=== PATIENT | female | born 1985 | race Two or more races ===

== ENCOUNTER 2019-12-18 20:24 | Inpatient (IN) | payer MEDICAID, OTHER ==
[~2019-12-18] VITALS: Ht 165.1 cm; Wt 149.7 kg
--- NOTE | 2019-12-18 20:52 | NUR ---
BLOOD COLLECTED AND SENT TO LAB
--- NOTE | 2019-12-18 20:52 | NUR ---
COVID SWAB COLLECTED AND SENT TO LAB
[2019-12-18 21:00] LABS: BASOPHILS # (AUTO) 0.1 /CMM (0.0-0.2); BASOPHILS % (AUTO) 0.8 % (0.0-2.0); EOSINOPHILS % (AUTO) 2.7 % (0.0-6.0); HEMATOCRIT 43 % (33-45); HEMOGLOBIN 13.7 g/dL (11.5-14.8); LYMPHOCYTES # (AUTO) 2.7 /CMM (0.8-4.8); LYMPHOCYTES % (AUTO) 27.5 % (20.0-44.0); MEAN CORPUSCULAR HGB CONC 32 g/dl (31.0-36.0); MEAN CORPUSCULAR VOLUME 96 fL (82-100); MONOCYTES # (AUTO) 1.2 /CMM (0.1-1.30); NEUTROPHILS # (AUTO) 5.5 /CMM (1.8-8.9); PLATELET COUNT (AUTO) 328 /CMM (150-450); RED BLOOD CELL COUNT(AUTO) 4.43 MIL/uL (4.0-5.2); WHITE BLOOD COUNT (AUTO) 9.6 K/uL (4.3-11.0)
--- NOTE | 2019-12-18 21:15 | NUR ---
BRIANNE 61 FROM HOME FOR C/O H/A & SOB. PER EMS PT WAS DISCHARGED FROM [facility] 2 WKS AGO W/ DX OF COVID 19. AAOX4, VSS. RR EVEN & UNLABORED. DENIES CP, DIZZINESS, N/V AT THIS TIME. PT SEEN & EVAL'D BY DR. JIMENEZ. PLACED ON CUPOLA OPERATOR, ST. WILL CONT TO MONITOR.
[2019-12-18 21:17] LABS: APPEARANCE,URINE Slightly Cloudy (CLEAR); BILIRUBIN,URINE MODERATE (NEGATIVE); BLOOD, URINE Trace-intact Ery/uL (NEGATIVE); KETONES,URINE Trace (NEGATIVE); LEUKOCYTE ESTERASE ,URINE Negative (NEGATIVE); NITRITE, URINE Negative (NEGATIVE); PROTEIN,URINE 30 mg/dl (NEGATIVE); UGLUCOSE Negative (NEGATIVE)
[2019-12-18 21:26] LABS: COLOR,URINE DARK YELLOW (YELLOW)
[2019-12-18 21:29] LABS: WBC,URINE 0-2 /HPF (0-3)
[2019-12-18 21:30] LABS: BACTERIA,URINE Few /HPF (None Seen); SQUAMOUS EPITHELIAL CELL,UR Few /HPF (None Seen)
[2019-12-18 21:33] LABS: D-DIMER 1.39 mg/L(FEU (0.17-0.50)
[2019-12-18 21:35] LABS: ALANINE AMINOTRANSFERASE 106 U/L (12-78); ALBUMIN 3.3 g/dL (3.4-5.0); ALKALINE PHOSPHATASE 134 U/L (46-116); ASPARTATE AMINOTRANSFERASE 38 U/L (15-37); B-TYPE NATRIURETIC PEPTIDE 517 PG/ML (0-125); BILIRUBIN,TOTAL 0.3 mg/dL (0.2-1.0); CALCIUM, SERUM 9.3 mg/dL (8.5-10.1); CARBON DIOXIDE 34 mmol/L (21-32); CHLORIDE 99 mmol/L (98-107); CREATININE 0.5 mg/dL (0.6-1.3); GLUCOSE 126 mg/dL (74-106); POTASSIUM 3.2 mmol/L (3.5-5.1); SODIUM SERUM 139 mmol/L (136-145); TOTAL PROTEIN, SERUM 7.6 g/dL (6.4-8.2); UREA NITROGEN, BLOOD 7 mg/dL (7-18)
[2019-12-18 21:48] LABS: CREATINE KINASE, TOTAL 16 U/L (26-192); FERRITIN 365 ng/mL (8-388)
[2019-12-18 21:54] LABS: C-REACTIVE PROTEIN 6.5 mg/dL (0.0-0.9)
--- NOTE | 2019-12-18 22:06 | NUR ---
REPORT GIVEN TO JONG DUGGAN FOR NAS.
[2019-12-18 22:15] VITALS: BP 141/80
--- NOTE | 2019-12-18 22:51 | NUR ---
PLS CALL REESE APONTE (SISTER) @ [phone] FOR ANY UPDATES. FAMILY WANTS TO KNOW PT'S CONDITION.
--- NOTE | 2019-12-18 23:00 | NUR ---
TELE OVF CALLED SISTER BUT NO ONE NURSE THE PHONE. LEFT A MESSAGE FOR HER TO CALL US BACK FOR ANY UPDATE INFO.
--- NOTE | 2019-12-18 23:15 | NUR ---
TELE OVF ADMITTED 34 YEARS OLD PT FROM ER WITH THE DX OF SOB AND COVID 19 BY ELAINE VICKERS PT IS A/O X 3, ESTONIAN SPEAKING. NO SOB NO DISTRESS OR DISCOMFORT NOTED. PT IS WITH TRACH WHICH IS CAPPED. SKIN ASSESSMENT DONE. PICTURES TAKEN AND PLACE THEM IN THE CHART. PT WITH DECUB ON THE RT BUTTOCK. INCONTINENCE CARE GIVNE. WOUND CLEANED AND DRESSING APPLIED. ALSO F/C INSERTED. NOTED YELLOWISH URINE WITH SEDIMENTS. KEPT HER DRY AND CLEAN. SIDE RAILS UP X 2. CALL LIGHT WITHIN REACH. Addendum: 12/19/19 at 0021 by PHAM GRIFFITH RN PT ON 3L VIA N/C O2 SAT 98%
[2019-12-18] MEDS ORDERED: IV NS 0.9% 1,000 ML IV PRN (23:38)
[2019-12-19] MEDS ORDERED: ONDANSETRON HCL/PF 4 MG/2 ML VIAL IVP PRN
[2019-12-19] MEDS ORDERED: MAGNESIUM HYDROXIDE 30 ML UDC PO PRN
[2019-12-19] MEDS ORDERED: ZOLPIDEM TARTRATE 5 MG TABLET PO PRN
[2019-12-19] MEDS ORDERED: ACETAMINOPHEN 325 MG TABLET PO PRN
[2019-12-19] MEDS ORDERED: MAG HYDROX/AL HYDROX/SIMETH 30 ML UDC PO PRN
[2019-12-19] MEDS ORDERED: Z GUARD REMEDY 2 OZ OINT TP PRN
--- NOTE | 2019-12-19 00:20 | NUR ---
TELE OVF RT CHANGED THE NC TO TRACH MASK 3L O2 SAT 98%. continue to monitor her.
[2019-12-19 04:57] LABS: BASOPHILS # (AUTO) 0.1 /CMM (0.0-0.2); BASOPHILS % (AUTO) 0.6 % (0.0-2.0); HEMATOCRIT 43 % (33-45); HEMOGLOBIN 13.6 g/dL (11.5-14.8); LYMPHOCYTES % (AUTO) 21.3 % (20.0-44.0); MEAN CORPUSCULAR HGB CONC 32 g/dl (31.0-36.0); MEAN CORPUSCULAR VOLUME 98 fL (82-100); MONOCYTES # (AUTO) 0.9 /CMM (0.1-1.30); MONOCYTES % (AUTO) 9.6 % (2.0-12.0); NEUTROPHILS # (AUTO) 6.3 /CMM (1.8-8.9); NEUTROPHILS % (AUTO) 65.5 % (43.0-81.0); PLATELET COUNT (AUTO) 287 /CMM (150-450); RED BLOOD CELL COUNT(AUTO) 4.38 MIL/uL (4.0-5.2); WHITE BLOOD COUNT (AUTO) 9.6 K/uL (4.3-11.0)
--- NOTE | 2019-12-19 05:00 | NUR ---
Received patient ,stable,awake,alert,with tracheostomy with simple mask 3 L O2.Stable,not in any distress
[2019-12-19 05:04] LABS: ALBUMIN 2.9 g/dL (3.4-5.0); BILIRUBIN,TOTAL 0.2 mg/dL (0.2-1.0); CALCIUM, SERUM 8.7 mg/dL (8.5-10.1); CREATININE 0.5 mg/dL (0.6-1.3); MAGNESIUM 1.9 mg/dL (1.8-2.4); PHOSPHORUS 4.5 mg/dL (2.5-4.9); POTASSIUM 3.3 mmol/L (3.5-5.1); TOTAL PROTEIN, SERUM 6.9 g/dL (6.4-8.2)
--- NOTE | 2019-12-19 07:00 | NUR ---
Remains stable.Report given to Nicholas SUNSHINE
--- NOTE | 2019-12-19 07:15 | NUR ---
RN OPENING NOTE Received patient asleep in bed no signs of distress appears calm and relaxed. On trach mask 3L tolerating well. AO x3-4 Persian Speaking. computer aided design technician able to translate. Tele reading ST 110s. Has FC draining clear yellow urine by gravity. Noted with rash on L Hip. Pt has RAC #13 reinforced dressing and LFA #20 flushes well. Safety measures reinforced. Call light within reach. Bed locked and on lowest position. Will cont to monitor.
[2019-12-19 08:00] VITALS: BP 114/60
[2019-12-19] MEDS: PANTOPRAZOLE 40 MG TABLET.DR PO SCH (08:50)
[2019-12-19] MEDS: ENOXAPARIN SODIUM 40 MG/0.4 ML DISP.SYRIN SQ SCH (08:53)
--- NOTE | 2019-12-19 09:12 | NUR ---
WOUND CARE CONSULT: REVIEWED CHART, NURSING DOCUMENTATION AND PHOTOS WHICH INDICATE LARGE WOUND TO RT BUTTOCK, RASHES AND REDNESS TO LEFT SIDE OF NECK WITH TRACH, PRESENT ON ADMISSION. RECOMMEND SURGICAL CONSULT. DR MARIE NOTIFIED OF CONSULT REQUEST. RECOMMENDATIONS MADE FOR SKIN PROTECTION. DISCUSSED WITH NURSING STAFF. SOCIAL SERVICE CONSULT REQUESTED. MD IN AGREEMENT WITH PLAN OF CARE. Addendum: 12/19/19 at 0916 by CASSIE SCHULTE [facility] AIR BED IS ON ORDER.
[2019-12-19] MEDS ORDERED: SHAR1SUP RC (10:08)
[2019-12-19] MEDS ORDERED: ALLERGY MED (10:08)
[2019-12-19] MEDS ORDERED: POTASSIUM CHLORIDE 20 MEQ TAB.PRT.SR PO ONE (10:30)
--- NOTE | 2019-12-19 10:30 | NUR ---
CALL RECEIVED BY NEPHEW SHARA MARKHAM ([phone]) REG PATIENT'S CONDITION. ACCDG TO HIM THEY NEED HELP TAKING CARE OF PATIENT BEC AT HOME NO ONE CAN GIVE TX FOR HIS AUNT'S PRESSURE ULCER. INF WILL REFER TO CASE MANAGEMENT. GAVE ALSO PHONE # OF SISTER OF PATIENT REESE APONTE LATVIAN SPEAKER [phone].
[2019-12-19 12:00] VITALS: BP 115/94
--- NOTE | 2019-12-19 13:55 | NUR ---
DR GREEN REQUESTED CXR AND DISCHARGE SUMMARY FROM [facility]. CALLED [employer]. GOT THE FAX NUMBER AND SENT REQUEST BY FAX.
[2019-12-19 14:09] LABS: CALCIUM, SERUM 8.6 mg/dL (8.5-10.1); CREATININE 0.5 mg/dL (0.6-1.3); POTASSIUM 3.8 mmol/L (3.5-5.1)
[2019-12-19] MEDS: DAKINS QUARTER STRENGTH (0.125%) 480 ML BOTTLE TOP SCH (14:10)
[2019-12-19] MEDS: CLOTRIMAZOLE/BETAMETASONE DIPROPIONATE 15 GM TUBE TP SCH ×2 (14:10→16:47)
[2019-12-19] MEDS: FUROSEMIDE 40 MG/4 ML VIAL IV SCH ×2 (14:11→20:03)
--- NOTE | 2019-12-19 15:00 | NUR ---
RT Pt on 3 lpm O2 via trach mask. Pt has Shiley 8 XLT trach tube. Spare trach and ambu bag at bedside. Pt alert and verbal. No respiratory distress or SOB noted at this time. Trach patent and secured. Addendum: 12/19/19 at 1507 by IBRAHIMA WILEY RT Amended: Links added.
[2019-12-19 16:00] VITALS: BP 143/86
--- NOTE | 2019-12-19 18:56 | NUR ---
RN CLOSING NOTE Patient in bed asleep calm and relaxed no signs of distress. tmask 3L tolerating well. aguilar cath drained 800 ml. Endorsed to police shift commander nurse for ethan.
[2019-12-19 20:00] VITALS: BP 118/71
--- NOTE | 2019-12-19 20:00 | NUR ---
SHOE PARTS CASER OPENING NOTE RECEIVED PT AWAKE AND ALERT WITH NO APPARENT SIGNS OF DISTRESS. SHE IS LAYING WITH HOB ELEVATED. SHE IS ON 2L NASAL CANNULA WITH ON 02 SATURATION OF 100%. TELE MONITOR READS SINUS BRADYCARDIA AT 58 BPM. SHE HAS A KLEVER PICC LINE THAT IS FLUSHED AND PATIENT INFUSING NS AT 75ML/HR. SHE HAS HD CATHETER RU CHEST AND A PEG TUBE PATENT AND CLAMPED WITH NO RESIDUAL NOTED. AWAITING H&H RESULTS. SHE IS ON DROPLET ISOLATION FOR R/O COVID. BED IS IN LOWEST AND LOCKED POSITION WITH BED ALARM ACTIVATED. Addendum: 12/19/19 at 2109 by CASSIE JUNOIR RN NOTES NOT FOR THIS PT.
--- NOTE | 2019-12-19 20:00 | NUR ---
RT NOTE PT RECEIVED TRACHED ON T-MASK @ 3LPM. PT AWAKE/ALERT. DIMINISHED B/S NOTED. PT REFUSED SX, NO DISTRESS NOTED. WILL CONTINUE TO MONITOR. Addendum: 12/20/19 at 0402 by FARHAD PULIDO RT Amended: Links added.
--- NOTE | 2019-12-19 20:00 | NUR ---
SPLICER APPRENTICE OPENING NOTES RECEIVED PT AWAKE AND ALERT WITH NO SIGNS OF DISTRESS. SHE HAS A TRACH WITH SUPPLEMENTAL OXYGEN AT 3LP VIA TRACH MASK AND AN 02 SATURATION OF 97%. HER TELE BOX IS READING SINUS TACHYCARDIA 102 BMP. SHE HAS AN 18G RAC THAT IS FLUSHED AT PATIENT. SHE IS ON DROPLET ISOLATION FOR R/O COVID. BED IS IN LOWEST AND LOCKED POSITION WITH CALL LIGHT WITHIN REACH. WILL CONTINUE TO MONITOR.
[2019-12-19 20:26] LABS: ABG OXYGEN SATURATION 98.4 % (92.0-98.5); ABG PCO2 65.3 mmHg (35.0-45.0); ABG PH 7.347 (7.350-7.450); ABG PO2 127.4 mmHg (75.0-100.0); AaDO2 24.4 mmHg; COHb 0.4 % (0.5-1.5); MetHb 0.3 % (0.0-1.5); O2Hb 97.7 % (94.0-97.0); SITE, ABG Left Radial; VENT MODE, BG TRACH COLLAR 32%
[2019-12-20] VITALS (7 sets, daily range): BP systolic 102–140; BP diastolic 67–86
--- NOTE | 2019-12-20 | NUR ---
RT NOTE PLACED PT ON 28% POST ABG RESULTS. RN EDELMIRA AWARE AND NOTIFIED. NO DISTRESS NOTED.
[2019-12-20] MEDS: FUROSEMIDE 40 MG/4 ML VIAL IV SCH (01:44)
[2019-12-20 05:32] LABS: ABG BASE EXCESS 10.7 mmol/L; ABG OXYGEN SATURATION 98.5 % (92.0-98.5); ABG PCO2 62.6 mmHg (35.0-45.0); ABG PH 7.403 (7.350-7.450); ABG PO2 110.9 mmHg (75.0-100.0); AaDO2 14.9 mmHg; COHb 0.8 % (0.5-1.5); MetHb 0.2 % (0.0-1.5); O2Hb 97.5 % (94.0-97.0); SITE, ABG Right Radial; VENT MODE, BG TRACH COLLAR 28%
--- NOTE | 2019-12-20 06:13 | NUR ---
RT NOTE ABG DRAWN @ 0522 ON TRACH COLLAR 28%. NO DISTRESS NOTED. PT AWAKE/ALERT. RN EDELMIRA NOTIFIED OF ABG RESULTS.
--- NOTE | 2019-12-20 06:52 | NUR ---
PIPED BUTTONHOLE MACHINE OPERATOR CLOSING NOTE PT IS RESTING COMFORTABLY IN BED WITH NO S/S OF RESPIRATORY DISTRESS. SHE IS ON TRACH MASK ON 2LPM WITH AN 02 SAT OF 99%. HER TELE MONITOR IS CURRENTLY NSR AT 95 BPM. IVS ARE FLUSHED AND INTACT WITH NO SIGNS OF INFILTRATION OR INFECTION. WOUND CARE WAS WAS COMPLETED AND WELL TOLERATED. BED IS IN LOWEST AND LOCKED POSITION WITH CALL [place] IN REACH. WILL ENDORSE PLAN OF CARE TO AM RN.
[2019-12-20 07:03] LABS: CALCIUM, SERUM 8.7 mg/dL (8.5-10.1); CREATININE 0.5 mg/dL (0.6-1.3); POTASSIUM 3.3 mmol/L (3.5-5.1)
--- NOTE | 2019-12-20 07:15 | NUR ---
RN OPENING NOTE: Received patient in bed and asleep. Isolation precaution to r/o covid-[address] Tele monitor showing sinus rhythm in the 90s. On cont. o2 via Trach mask @ 2lpm being tolerated well. No SOB and not in respiratory distress. Saturation noted at 96%. IV sites clean, dry, patent and intact. Mccracken catheter in place and draining joey colored urine. Noted to have multiple skin issues. No pain noted on patient, appears relaxed and comfortable. Call light in reach. Bed locked, low and at semi-ramos's position, Side rails up x3. Safety ensured and observed. Will continue to monitor.
[2019-12-20] MEDS: PANTOPRAZOLE 40 MG TABLET.DR PO SCH (07:59)
[2019-12-20] MEDS: ENOXAPARIN SODIUM 40 MG/0.4 ML DISP.SYRIN SQ SCH (08:45)
[2019-12-20] MEDS ORDERED: POTASSIUM CHLORIDE 20 MEQ TAB.PRT.SR PO ONE (09:30)
[2019-12-20] MEDS: HYDROCODONE/APAP 5/325MG TABLET PO PRN (11:31)
[2019-12-20] MEDS: DAKINS QUARTER STRENGTH (0.125%) 480 ML BOTTLE TOP SCH (12:04)
[2019-12-20] MEDS: CLOTRIMAZOLE/BETAMETASONE DIPROPIONATE 15 GM TUBE TP SCH ×2 (12:05→19:23)
[2019-12-20] MEDS ORDERED: LIDOCAINE 1%-EPI 1:100,000 20 ML VIAL TP ONE (15:00)
[2019-12-20] MEDS ORDERED: SILVER NITRATE APPLICATOR 1 EA BOX TP ONE (15:00)
--- NOTE | 2019-12-20 15:26 | NUR ---
rn quality note: Patient transferred to room 329 and endorsement given to JONG Monge. PAtient was transferred in stable condition.
--- NOTE | 2019-12-20 15:30 | NUR ---
TELE TRANSFER FROM ICU NOTES RECEIVED PT TRANSFER FROM ICU. PT IS DOMINICAN SPEAKING,ALERT AND ORIENTED X4. ABLE TO MAKE NEEDS KNOWN. ON T PIECE O2 SAT 99%.WITH SHILEY # 8. ON TELE SR ST HR 102. WITH DUGAN CATHETER DRAING CLEAR YELLOW URINE OUTPUT. BEDBOUND WITH HEPLOCKS ON RT AC AND LFA.FOR SERIAL WOUND DEBRIDEMENT OF THE RT BUTTOCK.CONSENT HAS BEEN SIGNED. LIDOCAINE AND SILVER NITRATE PLACED IN THE CASSETTE. ON BARIATRIC BED. TURNED EVERY TWO HRS. CALL LIGHT PLACED WITHIN REACH.
--- NOTE | 2019-12-20 15:33 | NUR ---
2:30pm Card Hand consult requested per Dr. Sarah Beth MD due to the patient coming from home with a large wound on right buttock. Per MD notes, this patient is a 34 year-old female who primarily speaks Kiswahili. This SW spoke to manufacturing assembler Soon inquiring about the patients ability to speak with the trach. manufacturing assembler Soon informed this SW that the patient was going to be transferred to room 329. This SW to follow-up when the patient is in the new room.
--- NOTE | 2019-12-20 20:00 | NUR ---
BLACK ASH BURNER OPERATOR OPENING NOTES RECEIVED PT A/O X4 WITH IN NO APPARENT SIGNS OF DISTRESS. SHE HAS A TRACH COLLAR OXYGEN MASK AT 2 LPM. WITH A SATURATION OF 96%. SHE IS ON TELE MONITOR WITH A HR OF 89 BPM. SHE HAS AN 18G RAC THAT IS FLUSHED AND INTACT WITH NO S/S ON INFILTRATION. HER DUGAN CATHETER IS DRAINING AND A DARK LINH COLOR W SEDIMENT IS NOTED AND COMPLAINING OF BURNING WHEN SHE URINATES. BED IS IN LOWEST AND LOCKED POSITION WITH ALTERNATING TILT ACTIVATED AND CALL LIGHT IN REACH. WILL CONTINUE TO MONITOR.
--- NOTE | 2019-12-20 20:51 | NUR ---
RT NOTE PT RECEIVED TRACHED ON T-MASK @ 2LPM. PT AWAKE/ALERT. SX DONE, SMALL THICK WHITE YELLOW SECRETIONS NOTED. CONT. PULSE OX CONNECTED. NO DISTRESS NOTED. WILL MONITOR T/O SHIFT. Addendum: 12/20/19 at 2051 by FARHAD PULIDO RT Amended: Links added.
[2019-12-20 22:45] LABS: APPEARANCE,URINE TURBID (CLEAR); BILIRUBIN,URINE MODERATE (NEGATIVE); BLOOD, URINE LARGE Ery/uL (NEGATIVE); COLOR,URINE YELLOW (YELLOW); KETONES,URINE TRACE (NEGATIVE); LEUKOCYTE ESTERASE ,URINE SMALL (NEGATIVE); NITRITE, URINE NEGATIVE (NEGATIVE); PROTEIN,URINE 100 mg/dl (NEGATIVE); UGLUCOSE 100 MG/DL mg/dL (NEGATIVE); UROBILINOGEN,URINE >=8.0 EU/dL (0.2)
[2019-12-20 22:49] LABS: BACTERIA,URINE Few /HPF (None Seen); RBC,URINE 51-80 /HPF (0-2); SQUAMOUS EPITHELIAL CELL,UR Few /HPF (None Seen); URINE AMORPHOUS PHOSPHATES Moderate /HPF (None Seen)
[2019-12-21] VITALS (8 sets, daily range): BP systolic 111–138; BP diastolic 67–86
--- NOTE | 2019-12-21 06:00 | NUR ---
BOTTLE INSPECTOR NOTES PT HAD COMPLAINED OF NEW ONSET BURNING WHILE URINATING. AFTER CONTACTING PHILOSOPHY INSTRUCTOR . OBTAINED AN ORDER FOR UA AND UC. UA SHOWED ELEVATED WBC AND OBTAINED ORDER FOR KEFLEX. WILL CONTINUE TO MONITOR
[2019-12-21] MEDS: CEPHALEXIN MONOHYDRATE 500 MG CAPSULE PO SCH ×4 (06:18→23:03)
--- NOTE | 2019-12-21 06:59 | NUR ---
RN CLOSING NOTE PT IS AWAKE AND RESTING IN BED. HER O2 SAT HAS BEEN TITRATED DOWN TO 1LPM VIA TRACH MASK AND SHE IS TOLERATING IT WELL WITH A 02 SAT CURRENTLY AT 98% TRACH MASK. SHE IS CURRENTLY NSR AT 98 BPM. WOUND CARE WAS TOLERATED WELL. BED IS IN LOWEST AND LOCKED POSITION WITH CALL [place] WITHIN REACH. PT IS NOW COMPLAINING OF VAGINAL ITCHINESS WILL ENDORSE TO ONCOMING RN FOR NAS.
--- NOTE | 2019-12-21 07:20 | NUR ---
DINING SERVICE SUPERVISOR NOTES PATIENT IN BED ALERT ORIENTED X 4. NO ACUTE DISTRESS NOTED. BREATHING UNLABORED. NO SOB NOTED. IV ACCESS PATENT AND INTACT, NO REDNESS. NO BLEEDING NOTED. SAFETY MEASURES IN PLACE, CALL LIGHT WITHIN REACH. WILL CONTINUE TO MONITOR ACCORDINGLY.
[2019-12-21] MEDS: PANTOPRAZOLE 40 MG TABLET.DR PO SCH (08:03)
[2019-12-21] MEDS: ENOXAPARIN SODIUM 40 MG/0.4 ML DISP.SYRIN SQ SCH (09:27)
[2019-12-21] MEDS: DAKINS QUARTER STRENGTH (0.125%) 480 ML BOTTLE TOP SCH ×2 (09:28→22:58)
[2019-12-21] MEDS: CLOTRIMAZOLE/BETAMETASONE DIPROPIONATE 15 GM TUBE TP SCH ×2 (09:29→17:34)
--- NOTE | 2019-12-21 12:34 | NUR ---
10:00am It Investment/Portfolio Manager consult requested by Dr. Burleson as the patient came from home with a large wound on the right buttock. It Investment/Portfolio Manager met with the patient at bedside. Patient was alert and oriented x4. Patients primarily language is Korean, and this SW conducted this assessment in Korean. Patient is a 34-year-old female. Patient confirmed demographics on face sheet including date of and address. Patient reported that she cannot walk, per patient she was in a coma at a different hospital from October 05 to November 20 before being admitted to [facility] on 12/18/2019, and that is when she lost sensation in her legs. Patient reports needing a lot of assistance with ADLs and IADLs. Patient reports limited mobility on the lower extremity of her body. Patient reported that her sister Mariposa was taking care of her until her sister fell ill. Patient reports that she has not worked as she was laid off due to COVID-19. Patient reported that she applied for unemployment, was receiving it, and unemployment stopped when the patient was admitted to the previous hospital. Patient reports that she is not receiving any government aid such as food stamps, GR, SSI/SSD. Patient became emotional as patients tone of voice fell low and patient began to cry. Patient stated that she has a 10-year-old son at home who she cannot provide for. Patient stated that her [id number] is helping her and her son financially, and that at the moment he is the only family member who can help. Patient denies alcohol, drug, and cigarette use. Patient denies auditory and visual hallucinations. Patient denies suicidal and homicidal ideations. Patient expressed to this SW that she would like to receive physical therapy services either at [facility] or be referred to an outpatient clinic to gain control of her leg muscles. Patient informed this SW that she believes the reason she has a wound was due to the not being rotated at a previous hospital due to her weight and limited rotation in her home after sister Mariposa fell ill. Patient expressed interest in being discharged to a facility that can provide additional help with her wound. Patient expressed interest in applying for disability and this SW to provide resources to the patient in Korean. Patient informed this SW that she cannot read well and gave verbal consent to provide same information to her sister Mariposa por favor llame a mi rsoalee y chandra kimble elisabeth applicar por mi (please call my sister and tell her how to apply for me). Patient informed this SW that sister Mariposa can apply on her behalf as Mariposa currently has all of the patients personal documentations in her possession. This SW to provide the patient with disability information in Korean first and explain the process to the patient, and will then follow-up with patients sister Mariposa. This SW to follow-up with case management to inform them of patients desire to be discharged to a facility to help with her the wound. This SW remains available for all needs regarding this patient.
--- NOTE | 2019-12-21 12:35 | NUR ---
10:30am This SW returned to see the patient and provided the patient with social security disability information in [place] Islander. Patient thanked this SW for coming to explain and the process of applying for disability. Patient asked this SW to provide the same information to her sister Mariposa . SW to follow-up with Mariposa
--- NOTE | 2019-12-21 15:30 | NUR ---
10:30am This SW contacted patients sister Mariposa . SW introduced herself and informed Mariposa that the patient would like this SW to provide Mariposa with information regarding How to Apply for Social Security Disability on the patients behalf. Mariposa agreed to learning about the eligibility requirements and necessary documents to apply on behalf of this patient. This SW provided a step by step explanation based off the https://www.ssa.gov/benefits/disability/ website (including how to change the language of this website from Kazakh to Syriac). This SW informed Mariposa about all the necessary documentations that are necessary including social security number, date of , information of patients children, bank information, name, address and phone number of primary physician/recent hospitalizations and tax information. This SW explained that it may be beneficial to gather this information and attempt to apply per request of the patient (patient previously stating that she cannot read well and does not have documentations with her). This SW provided Mariposa with this SW name and phone number and stated that if Mariposa had any questions to reach out to this SW. This SW to remain available for all needs regarding the patient.
--- NOTE | 2019-12-21 19:00 | NUR ---
RN NOTES PATIENT IN BED ALERT ORIENTED X 4. NO ACUTE DISTRESS NOTED. BREATHING UNLABORED. NO SOB NOTED. IV ACCESS PATENT AND INTACT, NO REDNESS. NO BLEEDING NOTED. NEEDS ATTENDED AND ANTICIPATED, SAFETY MEASURES IN PLACE, CALL LIGHT WITHIN REACH. WILL ENDORSE TO NIGHT NURSE FOR CONTINUITY OF CARE.
--- NOTE | 2019-12-21 20:06 | NUR ---
cvicu rn: received report from fred longo. Pt a/o x4, sierra leonean speaking, trache cool aerosol fio2 28%,continuous spo2 monitoring ranging 90-94%, 0.5L oxygen. Mccracken catheter in placed. S/P right buttock debridement by KASSI, wound culture obtained by , sent to lab. Pt able to mouth words, make needs known. Discussed plan of care to pt. Safety precautions for fall initiated, call light in reach, will continue monitoring pt.
--- NOTE | 2019-12-21 20:12 | NUR ---
rn notes: on sinus rhythm hr 90
[2019-12-21] MEDS: MORPHINE SULFATE INJ 2 MG/ML DISP.SYRIN IV PRN (21:35)
--- NOTE | 2019-12-21 21:36 | NUR ---
PRN MORPHINE: PT C/O 10/10 BURNING SENSATION UPON URINATION, CRYING REQUESTING FOR PAIN MEDICATION. PRN MORPHINE 2MG IVP ADMINISTERED TO PT AT THIS TIME. WILL CONTINUE TO MONITOR AND REASSESS.
--- NOTE | 2019-12-21 23:00 | NUR ---
rn notes: bd bath provided to pt with help of riley lamb. wound care treatment done as ordered. complete linen change provided.
[2019-12-22] VITALS (10 sets, daily range): BP systolic 108–138; BP diastolic 22–86
[2019-12-22] MEDS: MORPHINE SULFATE INJ 2 MG/ML DISP.SYRIN IV PRN ×2 (02:14→06:33)
--- NOTE | 2019-12-22 02:15 | NUR ---
prn morphine: pt c/o burning sensation on vaginal area requesting for morphine, prn morphine 2mg ivp administered to pt at this time. will continue to monitor and reassess.
[2019-12-22] MEDS: CEPHALEXIN MONOHYDRATE 500 MG CAPSULE PO SCH ×2 (05:38→12:18)
--- NOTE | 2019-12-22 05:53 | NUR ---
rn notes: obtained consent for ct pelvis wo contrast. all communications translated in turkish.
--- NOTE | 2019-12-22 06:26 | NUR ---
RN NOTES: MID LEVEL GAME DESIGNER HENRY UNABLE TO DRAW BLOOD FOR AM LABS, STATED SHE WILL SEND ANOTHER MID LEVEL GAME DESIGNER TO RE-DRAW.
--- NOTE | 2019-12-22 06:34 | NUR ---
PRN MORPHINE: PT C/O 11/25 VAGINAL PAIN BURNING SENSATION, ASKING FOR MORPHINE. PRN MORPHINE 2MG IVP ADMINISTERED TO PT AT THIS TIME.
--- NOTE | 2019-12-22 06:48 | NUR ---
End of shift report: Prn morphine administered for c/o burning sensation on vaginal area. Mccracken catheter remains in place, draining into cloudy colored urine, bag via gravity. Pt had soft bm. Sinus rhythm hr 85. Ble kept offloaded on pillows. Iv access patent and flushing well, on hl, no s/s of iv infiltration noted. Remains on cool aerosol, spo2 continuous monitoring spo2 ranging 93-95%. PLAN OF CARE: Awaiting for placement. Vs remains stable, needs attended, safety precautions for fall remains engaged, call light in reach, will endorse to day rn for continuity of care.
[2019-12-22 07:12] LABS: BASOPHILS % (AUTO) 0.5 % (0.0-2.0); HEMATOCRIT 44 % (33-45); HEMOGLOBIN 14.2 g/dL (11.5-14.8); LYMPHOCYTES # (AUTO) 1.4 /CMM (0.8-4.8); LYMPHOCYTES % (AUTO) 17.4 % (20.0-44.0); MEAN CORPUSCULAR HGB CONC 33 g/dl (31.0-36.0); MEAN CORPUSCULAR VOLUME 97 fL (82-100); MONOCYTES # (AUTO) 0.8 /CMM (0.1-1.30); NEUTROPHILS # (AUTO) 5.8 /CMM (1.8-8.9); NEUTROPHILS % (AUTO) 70.1 % (43.0-81.0); PLATELET COUNT (AUTO) 253 /CMM (150-450); RED BLOOD CELL COUNT(AUTO) 4.48 MIL/uL (4.0-5.2); WHITE BLOOD COUNT (AUTO) 8.3 K/uL (4.3-11.0)
[2019-12-22 07:28] LABS: CREATININE 0.5 mg/dL (0.6-1.3); POTASSIUM 3.7 mmol/L (3.5-5.1)
--- NOTE | 2019-12-22 07:52 | NUR ---
HAND TOUCH UP PAINTER NOTES PATIENT RECEIVED IN BED SLEEPING LAYING COMFORTABLY. ALERT AND ORIENTED X 4, HEBREW SPEAKING. PATIENT T PIECE INTACT AND IN PLACE, TOLERATING SETTINGS WELL WITH sPO2 95%. ON CEMENTER, SINUS RHYTHM 96. IV ACCESS INTACT AND PATENT SALINE LOCK. DUGAN CATHETER INTACT AND IN PLACE WITH YELLOW URINE OUT PRESENTING AND FLOWING BY GRAVITY. PATIENT PRESENTS WITH NO SIGNS OF PAIN OR DISCOMFORT AT THIS TIME. SAFETY PRECAUTIONS IMPLEMENTED WITH BED LOCKED, BED IN THE LOWEST POSITION, BILATERAL SIDE RAILS UP, BED ALARM ON, AND CALL LIGHT WITHIN EASY REACH OF THE PATIENT. WILL CONTINUE TO MONITOR PATIENT.
[2019-12-22] MEDS: PANTOPRAZOLE 40 MG TABLET.DR PO SCH (08:47)
[2019-12-22] MEDS: ENOXAPARIN SODIUM 40 MG/0.4 ML DISP.SYRIN SQ SCH (08:49)
[2019-12-22] MEDS: DAKINS QUARTER STRENGTH (0.125%) 480 ML BOTTLE TOP SCH ×3 (08:53→18:09)
[2019-12-22] MEDS: CLOTRIMAZOLE/BETAMETASONE DIPROPIONATE 15 GM TUBE TP SCH ×2 (08:55→18:08)
[2019-12-22] MEDS: CEFTRIAXONE 1 G in IV D5W 50 ML IV SCH (15:54)
[2019-12-22] MEDS: PHENAZOPYRIDINE HCL 200 MG TABLET PO SCH (18:02)
--- NOTE | 2019-12-22 18:56 | NUR ---
PRACTICAL NURSE CLINICAL COORDINATOR NOTES PATIENT IN BED RESTING COMFORTABLY, ALERT AND ORIENTED, PATIENT MAINLY UNDERSTANDS MALTESE. TRACH IN PLACE AND TOLERATING SETTINGS WITH SPO2 100% PATIENT PRESENTS WITH NO SIGNS OF RESPIRATORY DISTRESS WITH EVEN NON-LABORED BREATHING. ON BROADBAND TECHNICIAN SINUS RHYTHM 98. MET ALL OF PATIENT'S NEEDS. PATIENT PRESENTS WITH NO SIGNS OF PAIN OR DISCOMFORT AT THIS TIME. SAFETY PRECAUTIONS IMPLEMENTED WITH BED LOCKED, BED IN THE LOWEST POSITION, BILATERAL SIDE RAILS UP, BED ALARM ON AND CALL LIGHT WITHIN EASY REACH OF THE PATIENT. WILL ENDORSE PLAN OF CARE TO UPCOMING NURSE.
--- NOTE | 2019-12-22 19:45 | NUR ---
MERCHANDISE PICKUP/RECEIVING ASSOCIATE NOTES RECEIVED ON BED A/O X4, SPEAK RUSSIAN,WITH TRACH TO COOL AEROSOL,FIO2 28% TOLERATED WELL.MOUTH WORDS FOR NEEDS,DUGAN CATH PLACE DRAINING COLORED ORANGE URINE,ON PYRIDIUM FOR UTI.RIGHT BUTTOCKS WOUND DRESSING INTACT AND DRY.ON BARIMAXX BED,PATIENT IN OBESE.WITH LEFT HAND SALINE LOCK INTACT AND PATENT.SR-85 ON TELE MONITOR.CALL LIGHT IN REACH,NEEDS ANTICIPATED.
[2019-12-23] VITALS (7 sets, daily range): BP systolic 109–126; BP diastolic 59–68
[2019-12-23] MEDS: MORPHINE SULFATE INJ 2 MG/ML DISP.SYRIN IV PRN (03:01)
--- NOTE | 2019-12-23 03:01 | NUR ---
FLOOR CLERK NOTES PAIN MANAGEMENT C/O LOWER ABDOMINAL PAIN 8/10 ON PAIN SCALE,MMEDICATED WITH MORPHINE 2MG IVP ORDERED.
--- NOTE | 2019-12-23 06:29 | NUR ---
EXPEDITER SERVICE ORDER NOTES ON BED A/O X4.PAIN MANAGEMENT EFFECTIVE,DRESSING DONE ON RIGHT SACRAL AREA.ALL DUE RAJ ADMINISTERED.CALL LIGHT IN REACH,NEEDS ATTENDED.WILL ENDORSE TO DAY NURSE FO NAS
[2019-12-23 06:46] LABS: BASOPHILS # (AUTO) 0.1 /CMM (0.0-0.2); BASOPHILS % (AUTO) 0.7 % (0.0-2.0); EOSINOPHILS % (AUTO) 2.9 % (0.0-6.0); HEMATOCRIT 41 % (33-45); HEMOGLOBIN 13.4 g/dL (11.5-14.8); LYMPHOCYTES # (AUTO) 1.3 /CMM (0.8-4.8); LYMPHOCYTES % (AUTO) 14.9 % (20.0-44.0); MEAN CORPUSCULAR HGB CONC 33 g/dl (31.0-36.0); MEAN CORPUSCULAR VOLUME 96 fL (82-100); MONOCYTES # (AUTO) 0.8 /CMM (0.1-1.30); MONOCYTES % (AUTO) 9.2 % (2.0-12.0); NEUTROPHILS # (AUTO) 6.3 /CMM (1.8-8.9); NEUTROPHILS % (AUTO) 72.3 % (43.0-81.0); PLATELET COUNT (AUTO) 259 /CMM (150-450); RED BLOOD CELL COUNT(AUTO) 4.27 MIL/uL (4.0-5.2); WHITE BLOOD COUNT (AUTO) 8.7 K/uL (4.3-11.0)
[2019-12-23 07:23] LABS: CALCIUM, SERUM 8.9 mg/dL (8.5-10.1); CREATININE 0.4 mg/dL (0.6-1.3)
--- NOTE | 2019-12-23 08:00 | NUR ---
RN NOTES RECEIVED PATIENT IN THE BED A/O X3, ABLE TO COMMUNICATE CANADIAN SPEAKER. PATIENT ON TRACHEA WITH AEROSOL FIO-28% , MAYCOL #8, NO ACUTE RESPIRATORY DISTRESS, TELE MONITOR ON SR-105. PATIENT HAS MORBID OBESITY, SPECIAL BED, F/C DRAINING TEA COLOR OUTPUT, PATIENT ABLE TO EAT KEEP HEAD ELEVATED FOR ASPIRATION PRECAUTION, V/S STABLE, ASSIST TURN AND REPOSTION Q 2 HR. ADMINISTERED SCHEDULED MEDICATION WITH CRUSHED, TRACHEA CARE MAINTAINED, SUCTION NEEDED, CALL LIGHT WITHIN TO REACH. CONTINUED MONITORING.
[2019-12-23] MEDS: PHENAZOPYRIDINE HCL 200 MG TABLET PO SCH ×3 (10:33→17:26)
[2019-12-23] MEDS: PANTOPRAZOLE 40 MG TABLET.DR PO SCH (10:33)
[2019-12-23] MEDS: PROSOURCE / PROSTAT (PYXIS) 30 ML UDC PO SCH ×2 (10:33→17:27)
[2019-12-23] MEDS: ENSURE ENLIVE 237 ML LIQUID (VANILLA) PO SCH (10:34)
[2019-12-23] MEDS: ENOXAPARIN SODIUM 40 MG/0.4 ML DISP.SYRIN SQ SCH (10:35)
[2019-12-23] MEDS: DAKINS QUARTER STRENGTH (0.125%) 480 ML BOTTLE TOP SCH ×3 (10:36→17:26)
[2019-12-23] MEDS: CLOTRIMAZOLE/BETAMETASONE DIPROPIONATE 15 GM TUBE TP SCH ×2 (10:36→17:27)
--- NOTE | 2019-12-23 11:21 | NUR ---
rn notes D/C TELE FOR MED/SURGE PER EQUIPMENT MANAGER.
[2019-12-23] MEDS: CEFTRIAXONE 1 G in IV D5W 50 ML IV SCH (14:18)
[2019-12-23] MEDS ORDERED: PIPERACILLIN /TAZOBACTAM 3.375 G in IV D5W 50 ML IV ONE (16:30)
--- NOTE | 2019-12-23 18:00 | NUR ---
RN NOTES PATIENT STABLE, REFUSED PAIN, V/S SNL, INFUSING ZOSYN 100 ML/HR ON LEFT HAND INTACT, ASSIST PATIENT TURN AND REPOSTION Q 2 HR, DUGAN DRAINING RADISH COLOR BECAUSE OF MEDICATION, CALL LIGHT WITHIN TO REACH. ENDORSED ONCOMING NURSE FOLLOW PLAN OF CARE.
--- NOTE | 2019-12-23 19:30 | NUR ---
MS RN OPEN NOTES PATIENT IS LAYING IN BED WATCHING TV. A/O X4, CAMBODIAN SPEAKING. NO SOB/ ACUTE RESPIRATORY DISTRESS NOTED. BED IS IN LOWEST LOCKED POSITION WITH SIDE RAILS UP X3, SEMI FOWLERS. CALL LIGHT IS WITHIN REACH. WILL CONTINUE TO MONITOR.
[2019-12-23] MEDS: HYDROCODONE/APAP 5/325MG TABLET PO PRN (21:50)
[2019-12-23] MEDS: PIPERACILLIN /TAZOBACTAM 3.375 G in IV D5W 100 ML IV SCH (23:27)
--- NOTE | 2019-12-24 05:39 | NUR ---
PATIENT RECEIVED ON 2L TRACH MASK, TOLERATING WITH NO DISTRESS/SOB NOTED. SUCTIONED FOR MINIMAL, THICK, SECRETIONS. AMBU BAG AT BEDSIDE. PULSE OXIMETER ALARM AUDIBLE AND VISIBLE. Addendum: 12/24/19 at 0540 by MAYRA MIXON RT Amended: Links added.
--- NOTE | 2019-12-24 06:51 | NUR ---
MS RN CLOSE NOTES PATIENT IS LAYING IN BED. A/O X4, BELARUSIAN SPEAKING. NO SOB/ ACUTE RESPIRATORY DISTRESS NOTED. IV IN LEFT HAND #20G IS PATENT AND INTACT. ALL DUE ANTIBIOTICS GIVEN. DUGAN CATHETER IN PLACE, 650ML OUTPUT. NO COMPLAINTS OF PAIN AT THE MOMENT. BED IS IN LOWEST LOCKED POSITION WITH SIDE RAILS UP X3, SEMI FOWLERS. CALL LIGHT IS WITHIN REACH. WILL ENDORSE TO AM NURSE.
--- NOTE | 2019-12-24 07:40 | NUR ---
MS RN NOTES RECEIVED PT IN BED, ASLEEP. EASILY AROUSED, A/O X4, LUXEMBOURGISH SPEAKING. PT TOLERATING RA, WITH NO ACUTE RESPIRATORY DISTRESS NOTED. PT DENIES ANY PAIN OR DISCOMFORT AT THIS TIME. PT DENIES ANY CONCERNS OR QUESTIONS AT THE MOMENT WELL. PIV TO L HAND G20, ON GOING NS AT TKO, INTACT AND OPERATIONAL. PT KEPT COMFORTABLE IN BED. CALL LIGHT KEPT WITHIN REACH. PT'S BED IN LOWEST, LOCKED POSITION WITH SRX3. WILL CONTINUE PLAN OF CARE.
[2019-12-24 08:00] VITALS: BP 110/68
--- NOTE | 2019-12-24 08:03 | NUR ---
RT RECEIVED PT TRACH W/ TRACH MASK. PT ON 02 2L. PT AWAKE AND ALERT. PT ON CONTINUOUS PULSE OX. AMBU BAG AND SPARE TRACH NOTED HOB. NO RESP DISTRSS OR SOB NOTED. WILL CONTINUE TO MONITOR T/O SHIFT.
[2019-12-24] MEDS: PANTOPRAZOLE 40 MG TABLET.DR PO SCH (08:19)
[2019-12-24] MEDS: PHENAZOPYRIDINE HCL 200 MG TABLET PO SCH ×2 (08:19→13:45)
[2019-12-24] MEDS: HYDROCODONE/APAP 5/325MG TABLET PO PRN (08:22)
[2019-12-24] MEDS: PIPERACILLIN /TAZOBACTAM 3.375 G in IV D5W 100 ML IV SCH ×3 (08:23→23:03)
[2019-12-24] MEDS: CLOTRIMAZOLE/BETAMETASONE DIPROPIONATE 15 GM TUBE TP SCH ×2 (08:23→16:14)
[2019-12-24] MEDS: PROSOURCE / PROSTAT (PYXIS) 30 ML UDC PO SCH ×2 (08:24→16:13)
[2019-12-24] MEDS: ENSURE ENLIVE 237 ML LIQUID (VANILLA) PO SCH (08:24)
[2019-12-24] MEDS: ENOXAPARIN SODIUM 40 MG/0.4 ML DISP.SYRIN SQ SCH (08:27)
[2019-12-24] MEDS: DAKINS QUARTER STRENGTH (0.125%) 480 ML BOTTLE TOP SCH ×3 (08:35→16:13)
--- NOTE | 2019-12-24 10:30 | NUR ---
MS RN NOTES SEN AND EVALUATED BY HOSPITALIST/CN, ADVISED TO FOLLOW UP WITH PHYSICAL THERAPY. INFORMED P.T./[place] WELL.
[2019-12-24 10:58] LABS: BASOPHILS % (AUTO) 0.6 % (0.0-2.0); EOSINOPHILS % (AUTO) 4.7 % (0.0-6.0); HEMATOCRIT 42 % (33-45); HEMOGLOBIN 13.5 g/dL (11.5-14.8); LYMPHOCYTES # (AUTO) 1.4 /CMM (0.8-4.8); LYMPHOCYTES % (AUTO) 18.3 % (20.0-44.0); MEAN CORPUSCULAR HGB CONC 33 g/dl (31.0-36.0); MEAN CORPUSCULAR VOLUME 96 fL (82-100); MONOCYTES # (AUTO) 0.8 /CMM (0.1-1.30); MONOCYTES % (AUTO) 10.4 % (2.0-12.0); NEUTROPHILS # (AUTO) 5.2 /CMM (1.8-8.9); PLATELET COUNT (AUTO) 262 /CMM (150-450); RED BLOOD CELL COUNT(AUTO) 4.33 MIL/uL (4.0-5.2); WHITE BLOOD COUNT (AUTO) 7.9 K/uL (4.3-11.0)
[2019-12-24 11:03] LABS: CALCIUM, SERUM 8.5 mg/dL (8.5-10.1); CREATININE 0.6 mg/dL (0.6-1.3); POTASSIUM 3.7 mmol/L (3.5-5.1)
[2019-12-24 16:00] VITALS: BP 120/68
--- NOTE | 2019-12-24 18:58 | NUR ---
MS RN NOTES PT REMAINS IN BED BED, AWAKE, A/O X4, MONGOLIAN SPEAKING. PT TOLERATING RA, WITH NO ACUTE RESPIRATORY DISTRESS NOTED. PT DENIES ANY PAIN OR DISCOMFORT AT THIS TIME. PIV TO L HAND G20, ON GOING NS AT TKO, INTACT AND OPERATIONAL. ALL NEEDS AND CARE ATTENDED. PT KEPT COMFORTABLE IN BED. CALL LIGHT KEPT WITHIN REACH. PT'S BED IN LOWEST, LOCKED POSITION WITH SRX3. WILL ENDORSE TO INCOMING NIGHT NURSE FOR NAS.
--- NOTE | 2019-12-24 19:07 | NUR ---
JONG mcneill opening notes Received Pt from morning nurse. Pt is laying in bed comfortably talking on the phone with family. Pt is alert and orientedX4. Pt speaks Turkish and able to make needs known. Respiration is normal on cool aerosol. No SOB. No S/S of distress noted. IV sites at L hand# 20 is clean, intact and flush without resistance. Mccracken cath is intact and draining orange red color urine. Safety precautions is maintained. Bed at low position, brakes locked, side rails upX3 and call light is within reach. Will continue to monitor. Addendum: 12/24/19 at 2023 by NIKKO DURBIN RN Pt is on trach collar 2 L, sat is 98%. Shiley XLT#8 and fio2 28%.
[2019-12-24 20:00] VITALS: BP 114/64
[2019-12-24 20:53] VITALS: BP 114/64
--- NOTE | 2019-12-25 05:00 | NUR ---
RN medsurg notes Inserted new aguilar cath. Old aguilar cath is leaking. New aguilar cath is intact, patent and draining yellow urine. Pt tolerated activity well.
[2019-12-25] MEDS: HYDROCODONE/APAP 5/325MG TABLET PO PRN (05:25)
--- NOTE | 2019-12-25 05:25 | NUR ---
RN medsurg notes Pt is complaining of pain and requesting pain meds. Administered norco5/po/prn as ordered for pain on abdomen and groin. Safety precautions is maintained. Will continue to monitor.
--- NOTE | 2019-12-25 06:39 | NUR ---
RN medsurg closing notes Pt is resting in bed comfortably. Pt is alert and orientedX4. No SOB. No S/S of distress noted. VS is stable. Afebrile. Routine meds were given as ordered. IV sites at L hand# 20 is clean, intact and SL. Mccracken cath is intact and draining yellow urine 700 ml. Wound care provided as ordered. Pt tolerated well. Kept Pt clean, dry and comfortable. All needs met and attended. Will endorse to morning nurse for NAS.
[2019-12-25 06:46] LABS: BASOPHILS % (AUTO) 0.6 % (0.0-2.0); EOSINOPHILS % (AUTO) 5.5 % (0.0-6.0); HEMATOCRIT 41 % (33-45); HEMOGLOBIN 13.2 g/dL (11.5-14.8); LYMPHOCYTES # (AUTO) 1.5 /CMM (0.8-4.8); LYMPHOCYTES % (AUTO) 21.8 % (20.0-44.0); MEAN CORPUSCULAR HGB CONC 33 g/dl (31.0-36.0); MEAN CORPUSCULAR VOLUME 96 fL (82-100); MONOCYTES # (AUTO) 0.8 /CMM (0.1-1.30); NEUTROPHILS # (AUTO) 4.1 /CMM (1.8-8.9); NEUTROPHILS % (AUTO) 60.1 % (43.0-81.0); PLATELET COUNT (AUTO) 291 /CMM (150-450); RED BLOOD CELL COUNT(AUTO) 4.25 MIL/uL (4.0-5.2); WHITE BLOOD COUNT (AUTO) 6.9 K/uL (4.3-11.0)
[2019-12-25 08:00] VITALS: BP 135/67
--- NOTE | 2019-12-25 08:01 | NUR ---
MS RN OPENING NOTES PATIENT IS AWAKE A/O X 4. WITH NO SIGNS OF DISTRESS AND NO SOB ON VENTILATOR COLLAR OF 2L OF OXYGEN SHILEY #8 FIO2 28%. IV L HAND #20 SL INTACT. DUGAN CATHETER INTACT ORANGE COLOR URINE D/T PYRIDIUM. NO COMPLAIN OF PAIN AT THIS MOMENT. SAFETY MEASURES ARE APPLIED BED IS IN LOW AND LOCKED POSITION SIDE RAILS UP X 2 FOR SAFETY. CALL LIGHT WITHIN REACH WILL CONTINUE TO MONITOR.
[2019-12-25 09:15] LABS: CALCIUM, SERUM 8.7 mg/dL (8.5-10.1); CREATININE 0.6 mg/dL (0.6-1.3)
[2019-12-25] MEDS: PIPERACILLIN /TAZOBACTAM 3.375 G in IV D5W 100 ML IV SCH ×2 (09:28→16:26)
[2019-12-25] MEDS: ENSURE ENLIVE 237 ML LIQUID (VANILLA) PO SCH (09:29)
[2019-12-25] MEDS: PANTOPRAZOLE 40 MG TABLET.DR PO SCH (09:29)
[2019-12-25] MEDS: PROSOURCE / PROSTAT (PYXIS) 30 ML UDC PO SCH ×2 (09:29→16:53)
[2019-12-25] MEDS: DAKINS QUARTER STRENGTH (0.125%) 480 ML BOTTLE TOP SCH ×3 (09:30→16:54)
[2019-12-25] MEDS: ENOXAPARIN SODIUM 40 MG/0.4 ML DISP.SYRIN SQ SCH (09:42)
[2019-12-25] MEDS: CLOTRIMAZOLE/BETAMETASONE DIPROPIONATE 15 GM TUBE TP SCH ×2 (09:48→16:53)
[2019-12-25 19:04] VITALS: BP 153/65
--- NOTE | 2019-12-25 19:30 | NUR ---
MS RN CLOSING NOTES PATIENT IS AWAKE A/O X 4. WITH NO SIGNS OF DISTRESS AND NO SOB ON VENTILATOR COLLAR OF 2L OF OXYGEN SHILEY #8 FIO2 28%. IV L FA #24 SL INTACT. DUGAN CATHETER INTACT ORANGE COLOR URINE D/T PYRIDIUM. NO COMPLAIN OF PAIN AT THIS MOMENT. PATIENT KEPT DRY AND CLEAN. ALL NEEDS, CARE, TREATMENT AND MEDICATIONS WERE ADMINISTERED ANTICIPATED PER ORDER. SAFETY MEASURES ARE APPLIED BED IS IN LOW AND LOCKED POSITION SIDE RAILS UP X 2 FOR SAFETY. CALL LIGHT WITHIN REACH. WILL ENDORSE TO THE NEXT MUTUEL MACHINE OPERATOR.
[2019-12-25 20:00] VITALS: BP 106/63
[2019-12-25] MEDS ORDERED: LIDOCAINE 1%-EPI 1:100,000 20 ML VIAL TP ONE (20:00)
--- NOTE | 2019-12-25 20:00 | NUR ---
MS/RN OPENING NOTES RECEIVED PATIENT IN BED, AWAKE, ALERT, BED BOUND, SENEGALESE SPEAKING, ON TRACH COLAR AT 2 LITER PATIENT WITH NO GRIMACE AND GUARDING ABLE TO EAT DINNER WITH SUPERVISION ONLY, CALM AND COOPERATIVE, ABLE TO ACKNOWLEDGE NURSE AND CAN RESPOND WITH SIMPLE ANSWER, PATIENT LEFT HAND GAUGE 20 WITH NO S/S OF INFILTRATION, TO MONITOR FOR ANY CHANGES. RECEIVED ENDORSEMENT FROM AM RN FOR NAS. BED LOCKED, CALL LIGHTS WITHIN REACH. TO MONITOR,
--- NOTE | 2019-12-25 20:50 | NUR ---
MS/RN NOTES PATIENT WOUND CARE MD WITH PROGRESS NOTE, DEFER DEBRIDEMENT AT THIS TIME NOTED, CLARIFICATION IN AM.
[2019-12-26] MEDS: PIPERACILLIN /TAZOBACTAM 3.375 G in IV D5W 100 ML IV SCH ×3 (00:01→16:30)
--- NOTE | 2019-12-26 00:21 | NUR ---
MS/RN NOTES PER MD PELEG PER RT TO TAPER DOWN OXYGENATION AND WEAN OFF FROM TRAEH AT 2 LITER TO TOOM AIR, OK SATURATION BET 88 TO 90 OR TOLERATED.
--- NOTE | 2019-12-26 05:00 | NUR ---
MS/RN NOTES PATIENT SKIN CARE PROVIDED WITH ORDER PER WOUND CARE INSTRUCTIONS. TOLERATED.
--- NOTE | 2019-12-26 06:10 | NUR ---
329-1 MS/RN NOTES PATIENT IN BED, ALERT, ORIENTED X4, CAN COMMUNICATE WITH GESTURES AND WITH DIRECT EYE CONTACT, SLEPT ADEQUATEM PAIN MEDICATION GIVEN REPORTED PAIN BLE. OFF LOAD EXTREMIED, ATTTEMDED ALL NEEDS, SAFETY MEASURES PLACED, IV SITE ON LFA PATENT, DUGAN DRAINING LINH COLOREDORANGE COLRED URINE, TRARCH TO WEAN USE OF 2 LITER OXYGEN MONITORED, WILL ENDORSE TO AM RN FOR NAS.
[2019-12-26 07:13] LABS: CALCIUM, SERUM 8.8 mg/dL (8.5-10.1); CREATININE 0.6 mg/dL (0.6-1.3); POTASSIUM 3.5 mmol/L (3.5-5.1)
[2019-12-26 07:16] LABS: BASOPHILS % (AUTO) 0.6 % (0.0-2.0); EOSINOPHILS % (AUTO) 6.5 % (0.0-6.0); HEMATOCRIT 41 % (33-45); HEMOGLOBIN 13.3 g/dL (11.5-14.8); LYMPHOCYTES # (AUTO) 2.2 /CMM (0.8-4.8); LYMPHOCYTES % (AUTO) 32.9 % (20.0-44.0); MEAN CORPUSCULAR HGB CONC 33 g/dl (31.0-36.0); MEAN CORPUSCULAR VOLUME 96 fL (82-100); MONOCYTES # (AUTO) 0.8 /CMM (0.1-1.30); MONOCYTES % (AUTO) 12.2 % (2.0-12.0); NEUTROPHILS # (AUTO) 3.2 /CMM (1.8-8.9); NEUTROPHILS % (AUTO) 47.8 % (43.0-81.0); PLATELET COUNT (AUTO) 321 /CMM (150-450); RED BLOOD CELL COUNT(AUTO) 4.22 MIL/uL (4.0-5.2); WHITE BLOOD COUNT (AUTO) 6.6 K/uL (4.3-11.0)
--- NOTE | 2019-12-26 07:30 | NUR ---
REINSPECTOR OPENING NOTES PATIENT IS ALERT AND ORIENTED X 4. WITH NO SIGNS OF ACUTE DISTRESS AND NO SOB ON VENTILATOR COLLAR OF 2L OF OXYGEN SHILEY #8 FIO2 28%. IV L HAND #20 SL INTACT. DUGAN CATHETER INTACT WITH ORANGE COLOR URINE D/T PYRIDIUM. NO COMPLAIN OF PAIN AT THIS MOMENT. SAFETY MEASURES ARE APPLIED BED IS IN LOW AND LOCKED POSITION SIDE RAILS UP X 2 FOR SAFETY. CALL LIGHT WITHIN REACH WILL CONTINUE TO MONITOR
[2019-12-26 08:00] VITALS: BP 112/71
[2019-12-26] MEDS: PANTOPRAZOLE 40 MG TABLET.DR PO SCH (08:12)
[2019-12-26] MEDS: DAKINS QUARTER STRENGTH (0.125%) 480 ML BOTTLE TOP SCH ×3 (08:20→16:32)
[2019-12-26] MEDS: ENSURE ENLIVE 237 ML LIQUID (VANILLA) PO SCH (08:20)
[2019-12-26] MEDS: CLOTRIMAZOLE/BETAMETASONE DIPROPIONATE 15 GM TUBE TP SCH ×2 (08:22→16:32)
[2019-12-26] MEDS: PROSOURCE / PROSTAT (PYXIS) 30 ML UDC PO SCH ×2 (08:23→16:31)
[2019-12-26] MEDS: ENOXAPARIN SODIUM 40 MG/0.4 ML DISP.SYRIN SQ SCH (08:25)
[2019-12-26] MEDS ORDERED: PIPE3.379 IV (11:52)
[2019-12-26] MEDS ORDERED: CEFE1FRO IV (11:52)
[2019-12-26] MEDS ORDERED: CLOT15CR5 TP (11:52)
--- NOTE | 2019-12-26 18:00 | NUR ---
AQUACULTURIST NOTES BACK FROM OR IN STABLE CONDITION.
--- NOTE | 2019-12-26 18:35 | NUR ---
TUBE ROLLER CLOSING NOTES PATIENT IS AWAKE A/O X 4. WITH NO DISTRESS AND NO SOB. ON VENTILATOR COLLAR OF 2L OF OXYGEN SHILEY #8 FIO2 28%. IV L FA #24 SL INTACT. MIDLINE #18 ON RIGHT UPPER ARM INPLACE AND INTACT. REPORT FOR DISCHARGE GIVEN TO SHENA (JONG) IN [facility], AWAITING FOR TRANSPORTATION TO [facility] PAT[facility]. FACILITY NO COMPLAIN OF PAIN AT THIS MOMENT. PATIENT KEPT DRY AND CLEAN. ALL NEEDS, CARE, TREATMENT AND MEDICATIONS WERE ADMINISTERED ANTICIPATED PER ORDER. DISCONTINUED F/C WITH GOOD TOLERANCE. SAFETY MEASURES ARE APPLIED BED IS IN LOW AND LOCKED POSITION SIDE RAILS UP X 2 FOR SAFETY. CALL LIGHT WITHIN REACH. WILL ENDORSE TO THE NEXT LIGHTING DIRECTOR.
--- NOTE | 2019-12-26 20:02 | NUR ---
MS/DECKHAND SPONGE BOAT NOTES: RECEIVE REPORT FROM SABINA SUNSHINE. PER REPORT, PT IS AWAITING FOR TRANSPORTATION WITH [facility] TO BE DISCHARGED TO [facility]. 4 BEATER AND PULPER FEEDER AT BEDSIDE. PT SAFELY TRANSFERRED TO THE [facility]. REPORT WAS GIVEN ALREADY BY THE AM NURSE TO JONG CHATTERJEE @ [facility]. VSS. PT LEFT UNIT AT 2001 IN STABLE CONDITION.
== END 2019-12-26 20:07 | DRG 951 ==
LOC: ER 20:26 → ICU 21:54 → TELE1 12-19 05:03 → TELE 12-20 14:29 → MED 12-23 08:54
PROVIDERS: ADMIT Internal Medicine; ATTEND Nurse Practitioner Acute Care
PROC: 0KBN0ZZ Excision of Right Hip Muscle, Open Approach (ICD-10-PCS; principal; 2019-12-21)
PROC: 0KBN0ZZ Excision of Right Hip Muscle, Open Approach (ICD-10-PCS; 2019-12-26)
DX: J96.21 Acute and chronic respiratory failure with hypoxia (principal); Z68.43 Body mass index [BMI] 50.0-59.9, adult; E66.2 Morbid (severe) obesity with alveolar hypoventilation; Z93.0 Tracheostomy status; J96.22 Acute and chronic respiratory failure with hypercapnia; E87.1 Hypo-osmolality and hyponatremia; L89.314 Pressure ulcer of right buttock, stage 4; N39.0 Urinary tract infection, site not specified; L08.9 Local infection of the skin and subcutaneous tissue, unspecified; B96.4 Proteus (mirabilis) (morganii) as the cause of diseases classified elsewhere; B96.5 Pseudomonas (aeruginosa) (mallei) (pseudomallei) as the cause of diseases classified elsewhere; B95.2 Enterococcus as the cause of diseases classified elsewhere; R74.0 Nonspecific elevation of levels of transaminase and lactic acid dehydrogenase [LDH]; E87.6 Hypokalemia; L98.8 Other specified disorders of the skin and subcutaneous tissue; L30.4 Erythema intertrigo; L85.3 Xerosis cutis; Z86.19 Personal history of other infectious and parasitic diseases; E87.70 Fluid overload, unspecified
CPT/HCPCS: 31720; 36415; 36600; 71045-TC; 72192-TC; 80048-TC; 80053-TC; 80061-TC; 81000-TC; 82550-TC; 82728-TC; 83605-TC; 83615-TC; 83735-TC; 83880; 84100-TC; 84484-TC; 84703-TC; 85025-TC; 85378-TC; 85385-TC; 85730-TC; 86140-TC; 87040-TC; 87070-TC; 87081-TC; 87086-TC; 87186-TC; 94640-TC; 94760-TC; 94762-TC; 94799-TC; 97530-TC; A4623; A6253; A6403; A7526; G0378; J0696; J1650; J1940; J2270; J2543; J3490; J7030; J7050; J7060; U0003-CS